=== PATIENT | female | born 1995 | race African-American/Black ===

== ENCOUNTER 2018-06-28 11:57 | Emergency (ER) | payer SELFPAY ==
[~2018-06-28] VITALS: Ht 177.8 cm; Wt 120.7 kg
[2018-06-28 12:17] VITALS: BP 155/90
[2018-06-28] MEDS ORDERED: AMOX875T PO (12:41)
--- NOTE | 2018-06-28 12:41 | PHYS DOC ---
Past Medical History Past Medical History: No Pertinent History Past Surgical History: No Surgical History Alcohol Use: None Adult General Chief Complaint Chief Complaint: EARACHE/EAR PAIN HPI HPI Patient is a 23 year old female with no significant medical history who presents to the ED today complaining of mild intermittent left ear pain for the last 1 month. Patient denies anything specifically exacerbating or relieving her pain. She states she's had a slight nasal congestion for the last week. Review of Systems Review of Systems Constitutional: Denies fever or chills [] Eyes: Denies change in visual acuity, redness, or eye pain [] HENT: Reports left ear pain and nasal congestion, sore throat [] Respiratory: Denies cough or shortness of breath [] Cardiovascular: No additional information not addressed in HPI [] GI: Denies abdominal pain, nausea, vomiting, bloody stools or diarrhea [] : Denies dysuria or hematuria [] Musculoskeletal: Denies back pain or joint pain [] Integument: Denies rash or skin lesions [] Neurologic: Denies headache, focal weakness or sensory changes [] All other systems were reviewed and found to be within normal limits, except as documented in this note. Physical Exam Physical Exam Constitutional: Well developed, well nourished, no acute distress, non-toxic appearance. [] HENT: Normocephalic, atraumatic, bilateral external ears normal, oropharynx moist, no oral exudates, nose normal. []Left TM is moderately injected, right TM is normal. Eyes: PERRLA, EOMI, conjunctiva normal, no discharge. Neck: Normal range of motion, no tenderness, supple, no stridor. [] Cardiovascular:Heart rate regular rhythm, no murmur [] Lungs & Thorax: Bilateral breath sounds clear to auscultation [] Abdomen: Bowel sounds normal, soft, no tenderness, no masses, no pulsatile masses. [] Skin: Warm, dry, no erythema, no rash. [] Back: No tenderness, no CVA tenderness. [] Extremities: No tenderness, no cyanosis, no clubbing, ROM intact, no edema. [] Neurologic: Alert and oriented X 3, normal motor function, normal sensory function, no focal deficits noted. [] Psychologic: Affect normal, judgement normal, mood normal. [] Current Patient Data Vital Signs Vital Signs Date Time Temp Pulse Resp B/P (MAP) Pulse Ox O2 Delivery O2 Flow Rate FiO2 06/28/18 12:17 98.4 88 18 155/90 (111) 95 Room Air 98.4 EKG EKG [] Radiology/Procedures Radiology/Procedures [] Course & Med Decision Making Course & Med Decision Making Pertinent Labs and Imaging studies reviewed. (See chart for details) This is a 23-year-old female patient with upper respiratory infection discharged on amoxicillin. OTC decongestants recommended for upper respiratory infection. Follow-up with PCP in 1-2 weeks. OTC pain relievers also recommended. Dragon Disclaimer Dragon Disclaimer This electronic medical record was generated, in whole or in part, using a voice recognition dictation system. Departure Departure Impression: Primary Impression: Otitis media Additional Impression: Upper respiratory infection Disposition: HOME, SELF-CARE Condition: STABLE Referrals: NO PCP (PCP) Follow-up in 1-2 weeks Patient Instructions: Otitis Media, Adult, [id number], Upper Respiratory Infection, Adult, [id number] Additional Instructions: You were evaluated in the emergency for ear infection as well as upper respiratory infection symptoms. Take the prescribed medications as ordered, c omplete your antibiotics. Follow-up with your doctor in 1-2 weeks. Scripts Amoxicillin (AMOXICILLIN) 875 Mg Tablet 1 TAB PO BID, #20 TAB Prov: EVER PADILLA APRN 06/28/18 Problem Qualifiers Primary Impression: Otitis media Otitis media type: other nonsuppurative Chronicity: acute Laterality: left Recurrence: non-recurrent Qualified Codes: H65.192 - Other acute nonsuppurative otitis media, left ear Additional Impression: Upper respiratory infection URI type: unspecified URI Qualified Codes: J06.9 - Acute upper respiratory infection, unspecified EVER PADILLA HAM FACER June 28, 2018 12:41
== END 2018-06-28 12:52 | disposition home or self-care (01) ==
LOC: ER 11:57
DX: H65.192 Other acute nonsuppurative otitis media, left ear (principal); J06.9 Acute upper respiratory infection, unspecified
CPT/HCPCS: 99283

== ENCOUNTER 2018-08-01 18:44 | Emergency (ER) | payer SELFPAY ==
[~2018-08-01] VITALS: Ht 177.8 cm; Wt 106.6 kg
[~2018-08-01 18:44] MED LIST: AMOX875T PO
[2018-08-01 18:45] VITALS: BP 130/68
--- NOTE | 2018-08-01 19:05 | PHYS DOC ---
Past Medical History Past Medical History: No Pertinent History (EVER PADILLA APRN) Past Surgical History: Other Additional Past Surgical Histo: R orbital floor (EVER PADILLA APRN) Alcohol Use: None Drug Use: None (EVER PADILLA APRN) Adult General Chief Complaint Chief Complaint: LOWEREXTREMITY INJURY HPI HPI Patient is a 23 year old female who presents with 8 out of 10 right pelvic and low back pain that began yesterday after she fell down 6 steps. Denies any loss of consciousness. Describes the pain as sharp and constant worse on weight bearing. Denies anything specifically relieving the pain. Denies any numbness or tingling to bilateral lower extremities. Denies any loss of bowel bladder function. (EVER PADILLA APRN) Review of Systems Review of Systems Constitutional: Denies fever or chills [] GI: Denies abdominal pain, nausea, vomiting, bloody stools or diarrhea [] : Denies dysuria or hematuria [] Musculoskeletal: Reports right low back pain and right pelvic pain Integument: Denies rash or skin lesions [] Neurologic: Denies headache, focal weakness or sensory changes [] All other systems were reviewed and found to be within normal limits, except as documented in this note. (EVER PADILLA APRN) Allergies Allergies Allergies Coded Allergies Type Severity Reaction Last Updated Verified No Known Drug Allergies 08/01/18 No (ERINN ARGUETA MD) Physical Exam Physical Exam Constitutional: Well developed, well nourished, no acute distress, non-toxic appearance. [] Abdomen: Bowel sounds normal, soft, no tenderness, no masses, no pulsatile masses. [] Skin: Warm, dry, no erythema, no rash. [] Back: Diffuse paraspinal muscle tenderness the right lumbar spine, no midline lumbar spine tenderness, no CVA tenderness. [] Extremities: Patient is limping. Tenderness on palpation on the right inner pelvic region. Pain also elicited on range of motion to the right thigh. Slightly limited range of motion especially extension of the right thigh. +2 right pedal pulse. Cap refill less than 2 seconds the right lower extremity. Sensation intact to the right lower extremity. Neurologic: Alert and oriented X 3, normal motor function, normal sensory function, no focal deficits noted. [] Psychologic: Affect normal, judgement normal, mood normal. [] (EVER PADILLA APRN) Current Patient Data Vital Signs Vital Signs Date Time Temp Pulse Resp B/P (MAP) Pulse Ox O2 Delivery O2 Flow Rate FiO2 08/01/18 18:45 98.3 86 18 130/68 (88) 99 Room Air 98.3 (ERINN ARGUETA MD) Lab Values Laboratory Tests Test 08/01/18 18:51 08/01/18 19:44 08/01/18 19:54 Urine Collection Type Unknown Urine Color Yellow Urine Clarity Clear Urine pH 7.0 Urine Specific [place] 1.025 Urine Protein Negative mg/dL (NEG-TRACE) Urine Glucose (UA) Negative mg/dL (NEG) Urine Ketones (Stick) Negative mg/dL (NEG) Urine Blood Negative (NEG) Urine Nitrite Negative (NEG) Urine Bilirubin Negative (NEG) Urine Urobilinogen Dipstick 1.0 mg/dL (0.2 mg/dL) Urine Leukocyte Esterase Small (NEG) Urine RBC 3-5 /HPF (0-2) Urine WBC 5-10 /HPF (0-4) Urine Squamous Epithelial Cells Few /LPF Urine Bacteria Few /HPF (0-FEW) Urine Mucus Slight /LPF POC Urine HCG, Qualitative Hcg negative (Negative) Hcg negative (Negative) (ERINN ARGUETA MD) Lab Values Laboratory Tests Test 08/01/18 18:51 08/01/18 19:44 08/01/18 19:54 Urine Collection Type Unknown Urine Color Yellow Urine Clarity Clear Urine pH 7.0 Urine Specific [place] 1.025 Urine Protein Negative mg/dL (NEG-TRACE) Urine Glucose (UA) Negative mg/dL (NEG) Urine Ketones (Stick) Negative mg/dL (NEG) Urine Blood Negative (NEG) Urine Nitrite Negative (NEG) Urine Bilirubin Negative (NEG) Urine Urobilinogen Dipstick 1.0 mg/dL (0.2 mg/dL) Urine Leukocyte Esterase Small (NEG) Urine RBC 3-5 /HPF (0-2) Urine WBC 5-10 /HPF (0-4) Urine Squamous Epithelial Cells Few /LPF Urine Bacteria Few /HPF (0-FEW) Urine Mucus Slight /LPF POC Urine HCG, Qualitative Hcg negative (Negative) Hcg negative (Negative) (EVER PADILLA APRN) EKG EKG [] (EVER PADILLA APRN) Radiology/Procedures Radiology/Procedures []PROCEDURE: CT PELVIS WO CONTRAST CT PELVIS WO CONTRAST, CT LUMBAR SPINE WO CONTRAST Indication: Fall, pain Technique: Noncontrast CT imaging was performed of the lumbar spine and pelvis, multiplanar reconstruction images submitted. One or more of the following individualized dose reduction techniques were utilized for this examination: 1. Automated exposure control 2. Adjustment of the mA and/or kV according to patient size 3. Use of iterative reconstruction technique. Comparison: None Lumbar spine: Findings: Lumbar vertebral body stature is maintained. There is negligible posterior subluxation L2 relative L3 and L3 relative to L4. There is mild degenerative disc disease at L3-4. No acute lumbar spine fracture is identified. There is some variable multilevel mild lumbar facet degenerative change. There are likely very minimal posterior bulges at L3-4 and L4-5. IMPRESSION: 1. No acute lumbar spine fracture is identified. Pelvis: FINDINGS: No acute fracture is identified of the pelvis. IMPRESSION: 1. No acute fracture is identified of the pelvis. Electronically signed by: Buster Benitez MD (08/01/2018 8:40 PM) [facility] DICTATED and SIGNED BY: BUSTER BENITEZ MD DATE: 08/01/182039 (EVER PADILLA APRN) Course & Med Decision Making Course & Med Decision Making Pertinent Labs and Imaging studies reviewed. (See chart for details) This is a 23-year-old female patient presenting to the ED today with complaints of right low back pain and right pelvic pain status post falling down [address] of the lumbar spine, cervical spine-negative for any acute findings. Urine analysis is noted for UTI, discharged on Bactrim for 3 days also given prescriptions for naproxen and cyclobenzaprine. Ice elevation encouraged. Follow-up with PCP in 1-2 weeks. (EVER PADILLA APRN) Course & Med Decision Making Staff Physician Addendum: I was working in the ER during the course of this patient's visit. I was available for consultation as needed, but I was not directly involved in the care of this patient. (ERINN ARGUETA MD) Dragon Disclaimer Dragon Disclaimer This electronic medical record was generated, in whole or in part, using a voice recognition dictation system. (EVER PADILLA APRN) Departure Departure Impression: Primary Impression: Fall down steps Additional Impressions: Lumbar contusion Contusion of pelvic region UTI (urinary tract infection) Disposition: 01 HOME, SELF-CARE Condition: STABLE Referrals: NO PCP (PCP) follow up with your doctor in 1 week Patient Instructions: Contusion, [id number], Urinary Tract Infection Additional Instructions: You were evaluated in the emergency room for lumbar contusion and hip contusion status post falling. Take the prescribed medications for pain as needed. Complete your antibiotics for UTI. Apply ice and elevate the affected area. Follow-up with your doctor in 1-2 weeks. Scripts Cyclobenzaprine Hcl (CYCLOBENZAPRINE HCL) 10 Mg Tablet 1 TAB PO TID, #30 TAB Prov: EVER PADILLA APRN 08/01/18 Naproxen (NAPROXEN) 500 Mg Tablet 1 TAB PO BID, #20 TAB 1 Refill Prov: EVER PADILLA APRN 08/01/18 Sulfamethoxazole/Trimethoprim (BACTRIM DS TABLET) 1 Each Tablet 1 TAB PO BID, #6 TAB Prov: EVER PADILLA APRN 08/01/18 Problem Qualifiers Primary Impression: Fall down steps Encounter type: initial encounter Qualified Codes: W10.8XXA - Fall (on) (from) other stairs and steps, initial encounter Additional Impressions: Lumbar contusion Encounter type: initial encounter Qualified Codes: S30.0XXA - Contusion of lower back and pelvis, initial encounter Contusion of pelvic region Encounter type: initial encounter Qualified Codes: S30.0XXA - Contusion of lower back and pelvis, initial encounter UTI (urinary tract infection) Urinary tract infection type: site unspecified Hematuria presence: without hematuria Qualified Codes: N39.0 - Urinary tract infection, site not spec ified EVER PADILLA APRN Aug 01, 2018 19:05 ERINN ARGUETA MD Aug 02, 2018 21:19
[2018-08-01 20:22] LABS: BILIRUBIN,URINE NEGATIVE (NEG); CLARITY,URINE CLEAR; COLOR,URINE YELLOW; NITRITE,URINE NEGATIVE (NEG); PROTEIN,URINE NEGATIVE (NEG-TRACE)
[2018-08-01 20:32] LABS: BACTERIA,URINE FEW /HPF (0-FEW); SQUAMOUS EPITHELIAL CELL,UR FEW /LPF
--- NOTE | 2018-08-01 20:43 | RAD ---
CT PELVIS WO CONTRAST, CT LUMBAR SPINE WO CONTRAST Indication: Fall, pain Technique: Noncontrast CT imaging was performed of the lumbar spine and pelvis, multiplanar reconstruction images submitted. One or more of the following individualized dose reduction techniques were utilized for this examination: 1. Automated exposure control 2. Adjustment of the mA and/or kV according to patient size 3. Use of iterative reconstruction technique. Comparison: None Lumbar spine: Findings: Lumbar vertebral body stature is maintained. There is negligible posterior subluxation L2 relative L3 and L3 relative to L4. There is mild degenerative disc disease at L3-4. No acute lumbar spine fracture is identified. There is some variable multilevel mild lumbar facet degenerative change. There are likely very minimal posterior bulges at L3-4 and L4-5. IMPRESSION: 1. No acute lumbar spine fracture is identified. Pelvis: FINDINGS: No acute fracture is identified of the pelvis. IMPRESSION: 1. No acute fracture is identified of the pelvis. Electronically signed by: Darrell Alfredo MD (08/01/2018 8:40 PM) [facility]
[2018-08-01] MEDS ORDERED: SULF1TAB24 PO (21:03)
[2018-08-01] MEDS ORDERED: NAPR-514 PO (21:03)
[2018-08-01] MEDS ORDERED: CYCL10TA2 PO (21:03)
== END 2018-08-01 21:18 | disposition home or self-care (01) ==
LOC: ER 18:44
DX: S30.0XXA Contusion of lower back and pelvis, initial encounter (principal); N39.0 Urinary tract infection, site not specified; W10.9XXA Fall (on) (from) unspecified stairs and steps, initial encounter; Y93.89 Activity, other specified; Y92.89 Other specified places as the place of occurrence of the external cause; Y99.8 Other external cause status
CPT/HCPCS: 72131; 72192; 81001; 81025; 99285-25

== ENCOUNTER 2018-11-17 10:20 | Emergency (ER) | payer SELFPAY ==
[~2018-11-17] VITALS: Ht 177.8 cm; Wt 124.5 kg
[~2018-11-17 10:20] MED LIST changes: +CYCL10TA2 PO; +NAPR-514 PO; +SULF1TAB24 PO
[2018-11-17 11:12] LABS: BASO # 0.1 x10^3/uL (0.0-0.2); BASO % 1 % (0-3); EOS # 0.3 x10^3/uL (0.0-0.7); EOS % 3 % (0-3); HEMATOCRIT 35.1 % (36.0-47.0); HEMOGLOBIN 11.5 g/dL (12.0-15.5); LYMPH % 19 % (24-48); MEAN CORPUSCULAR HEMOGLOBIN 26 pg (25-35); MEAN CORPUSCULAR HGB CONC 33 g/dL (31-37); MEAN CORPUSCULAR VOLUME 79 fL (79-100); MONO # 0.5 x10^3/uL (0.0-1.1); MONO % 5 % (0-9); NEUT # 7.5 x10^3/uL (1.8-7.7); NEUT % 72 % (31-73); PLATELET COUNT 301 x10^3/uL (140-400); RED BLOOD COUNT 4.42 x10^6/uL (3.50-5.40); RED CELL DISTRIBUTION WIDTH 15.6 % (11.5-14.5); WHITE BLOOD COUNT 10.4 x10^3/uL (4.0-11.0)
[2018-11-17 11:15] LABS: BILIRUBIN,URINE NEGATIVE (NEG); CLARITY,URINE CLEAR; COLOR,URINE YELLOW; NITRITE,URINE NEGATIVE (NEG); PH,URINE 5.5; PROTEIN,URINE NEGATIVE (NEG-TRACE); UROBILINOGEN,URINE 0.2 mg/dL (0.2 mg/dL)
[2018-11-17 11:28] LABS: BACTERIA,URINE FEW /HPF (0-FEW); RBC,URINE 0 /HPF (0-2); SQUAMOUS EPITHELIAL CELL,UR MOD /LPF
[2018-11-17 11:39] LABS: CREATININE 0.9 mg/dL (0.6-1.0); GFR 93.1; POTASSIUM 4.1 mmol/L (3.5-5.1)
[2018-11-17 11:45] LABS: ALBUMIN/GLOBULIN RATIO 0.7 (1.0-1.7); TOTAL BILIRUBIN 0.2 mg/dL (0.2-1.0); TOTAL PROTEIN 7.2 g/dL (6.4-8.2)
--- NOTE | 2018-11-17 12:24 | PHYS DOC ---
Past Medical History Past Medical History: No Pertinent History Past Surgical History: Other Additional Past Surgical Histo: R orbital floor Alcohol Use: None Drug Use: None Adult General Chief Complaint Chief Complaint: ABDOMINAL PAIN IN HPI HPI Patient is a 23-year-old female who presents with complaint of abdominal pain and cramping that started yesterday. She states that currently she has no actual abdominal pain. She states that she has taken a total of 4 tests at home over the last 2 weeks all of which returned positive. She denies any vaginal bleeding. She states that yesterday the pain was moderate and was enough to make her nauseated but she did not vomit. She denies any diarrhea.[] Review of Systems Review of Systems Constitutional: Denies fever or chills [] Respiratory: Denies cough or shortness of breath [] Cardiovascular: No additional information not addressed in HPI [] GI: Complains of lower abdominal pain/cramping without vomiting or diarrhea [] : Denies dysuria or hematuria [] Neurologic: Denies headache, focal weakness or sensory changes [] All other systems were reviewed and found to be within normal limits, except as documented in this note. Allergies Allergies Allergies Coded Allergies Type Severity Reaction Last Updated Verified No Known Drug Allergies 08/01/18 No Physical Exam Physical Exam Constitutional: Well developed, well nourished, no acute distress, non-toxic appearance. [] HENT: Normocephalic, atraumatic, bilateral external ears normal, oropharynx moist, no oral exudates, nose normal. [] Eyes: PERRLA, EOMI, conjunctiva normal, no discharge. [] Neck: Normal range of motion, no tenderness, supple, no stridor. [] Cardiovascular: Regular rate and rhythm[] Lungs & Thorax: Bilateral breath sounds clear to auscultation [] Abdomen: Bowel sounds normal, soft, no tenderness. [] Skin: Warm, dry, no erythema, no rash. [] Extremities: No tenderness, no cyanosis, no clubbing, ROM intact. [] Neurologic: Alert and oriented X 3, no focal deficits noted. [] Current Patient Data Vital Signs Vital Signs Date Time Temp Pulse Resp B/P (MAP) Pulse Ox O2 Delivery O2 Flow Rate FiO2 11/17/18 12:35 77 16 131/66 (87) 98 Room Air 11/17/18 10:47 98.7 98.7 Lab Values Laboratory Tests Test 11/17/18 10:45 11/17/18 11:00 Urine Collection Type Unknown Urine Color Yellow Urine Clarity Clear Urine pH 5.5 Urine Specific [place] 1.025 Urine Protein Negative mg/dL (NEG-TRACE) Urine Glucose (UA) Negative mg/dL (NEG) Urine Ketones (Stick) Negative mg/dL (NEG) Urine Blood Negative (NEG) Urine Nitrite Negative (NEG) Urine Bilirubin Negative (NEG) Urine Urobilinogen Dipstick 0.2 mg/dL (0.2 mg/dL) Urine Leukocyte Esterase Negative (NEG) Urine RBC 0 /HPF (0-2) Urine WBC 1-4 /HPF (0-4) Urine Squamous Epithelial Cells Mod /LPF Urine Bacteria Few /HPF (0-FEW) POC Urine HCG, Qualitative Hcg negative (Negative) White Blood Count 10.4 x10^3/uL (4.0-11.0) Red Blood Count 4.42 x10^6/uL (3.50-5.40) Hemoglobin 11.5 g/dL (12.0-15.5) L Hematocrit 35.1 % (36.0-47.0) L Mean Corpuscular Volume 79 fL (79-100) Mean Corpuscular Hemoglobin 26 pg (25-35) Mean Corpuscular Hemoglobin Concent 33 g/dL (31-37) Red Cell Distribution Width 15.6 % (11.5-14.5) H Platelet Count 301 x10^3/uL (140-400) Neutrophils (%) (Auto) 72 % (31-73) Lymphocytes (%) (Auto) 19 % (24-48) L Monocytes (%) (Auto) 5 % (0-9) Eosinophils (%) (Auto) 3 % (0-3) Basophils (%) (Auto) 1 % (0-3) Neutrophils # (Auto) 7.5 x10^3/uL (1.8-7.7) Lymphocytes # (Auto) 2.0 x10^3/uL (1.0-4.8) Monocytes # (Auto) 0.5 x10^3/uL (0.0-1.1) Eosinophils # (Auto) 0.3 x10^3/uL (0.0-0.7) Basophils # (Auto) 0.1 x10^3/uL (0.0-0.2) Maternal Serum HCG Beta Subunit < 1 mIU/mL (0-5) Sodium Level 137 mmol/L (136-145) Potassium Level 4.1 mmol/L (3.5-5.1) Chloride Level 105 mmol/L (98-107) Carbon Dioxide Level 24 mmol/L (21-32) Anion Gap 8 (6-14) Blood Urea Nitrogen 13 mg/dL (7-20) Creatinine 0.9 mg/dL (0.6-1.0) Estimated GFR (Cockcroft-Gault) 93.1 BUN/Creatinine Ratio 14 (6-20) Glucose Level 89 mg/dL (70-99) Calcium Level 9.0 mg/dL (8.5-10.1) Total Bilirubin 0.2 mg/dL (0.2-1.0) Aspartate Amino Transferase (AST) 16 U/L (15-37) Alanine Aminotransferase (ALT) 12 U/L (14-59) L Alkaline Phosphatase 82 U/L (46-116) Total Protein 7.2 g/dL (6.4-8.2) Albumin 3.0 g/dL (3.4-5.0) L Albumin/Globulin Ratio 0.7 (1.0-1.7) L Lipase 83 U/L (73-393) Laboratory Tests 11/17/18 11:00 Laboratory Tests 11/17/18 11:00 EKG EKG [] Radiology/Procedures Radiology/Procedures [] Course & Med Decision Making Course & Med Decision Making Pertinent Labs and Imaging studies reviewed. (See chart for details) [] Dragon Disclaimer Dragon Disclaimer This electronic medical record was generated, in whole or in part, using a voice recognition dictation system. Departure Departure Impression: Primary Impression: Abdominal pain Disposition: HOME, SELF-CARE Condition: STABLE Referrals: NON,STAFF (PCP) Patient Instructions: Abdominal Pain Problem Qualifiers Primary Impression: Abdominal pain Abdominal location: unspecified location Qualified Codes: R10.9 - Unspecified abdominal pain DAMIAN SOTOMAYOR Jr. DO Nov 17, 2018 12:24
[2018-11-17 12:35] VITALS: BP 131/66
--- NOTE | 2018-11-17 12:57 | RAD ---
EXAM: Pelvic sonogram. HISTORY: Pelvic pain and positive home test. TECHNIQUE: Sonographic imaging of the pelvis was performed. COMPARISON: None. FINDINGS: The uterus measures 9.1 x 5.9 x 4.7 cm. No intrauterine gestational sac is seen. The endometrial stripe measures 14 mm. The ovaries are normal in size and demonstrate normal blood flow. There is no pelvic free fluid. IMPRESSION: Unremarkable pelvic sonogram. Note is made that no intrauterine gestational sac is seen. However, despite a reported positive home test, the quantitative beta-hCG level is reported as 0. Electronically signed by: Louise Crespo MD (11/17/2018 12:54 PM) [place] [id number]
== END 2018-11-17 13:28 | disposition home or self-care (01) ==
LOC: ER 10:20
DX: R10.30 Lower abdominal pain, unspecified (principal); R10.2 Pelvic and perineal pain
CPT/HCPCS: 36415; 76856; 80053; 81001; 81025; 83690; 84702; 85025; 99285